=== PATIENT | female | born 1970 | race African-American/Black ===

== ENCOUNTER 2020-03-21 13:57 | Emergency (ER) | payer MEDICARE ==
[~2020-03-21] VITALS: Ht 160 cm; Wt 90.7 kg
[2020-03-21] MEDS ORDERED: KEFLEX500 MG PO (14:08)
[2020-03-21] MEDS ORDERED: BACTRIM DS TAB1 EACH PO (14:08)
--- NOTE | 2020-03-21 14:42 | Emergency Department Note ---
History of Present Illnes History of Present Illness Chief Complaint: General Medicine Complaints History of Present Illness This is a 49 year old female arrived to the ED with complaints of a bug bite over her left lateral thigh for several days. Patient admits to picking at it and has noted some discharge but denies any pain.. 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 Any updates have been documented here. Past Medical History Recent Fever: No Clinical Suspicion of Infectio: No New/Unexplained Change in Ment: No Past Medical History: Seizure Disorder Other Surgery: breast ca right breast mastectomy Social History Physically hurt or threatened: No Review of Systems Review of Systems Constitutional: Reports no symptoms EENTM: Reports no symptoms Cardiovascular: Reports no symptoms Respiratory: Reports no symptoms Gastrointestinal: Reports no symptoms Genitourinary: Reports no symptoms Musculoskeletal: Reports no symptoms Integumentary: Reports other (BUG BITE ) Neurological: Reports no symptoms Psychological: Reports no symptoms Endocrine: Reports no symptoms Hematological/Lymphatic: Reports no symptoms Review of other systems: All other systems negative Physical Exam Related Data Allergies: Coded Allergies: No Known Allergies (Unverified , 03/21/20) Triage Vital Signs Vital Signs Date Time Temp Pulse Resp B/P (MAP) Pulse Ox O2 Delivery O2 Flow Rate FiO2 03/21/20 14:02 99.0 93 18 129/81 100 Room Air Vital signs reviewed: Yes Physical Exam CONSTITUTIONAL Constitutional: Present well-developed, Present well-nourished HENT HENT: Present normocephalic, Present atraumatic, Present oropharynx clear/moist, Present nose normal HENT L/R: Present left ext ear normal, Present right ext ear normal EYES Eyes: Reports PERRL, Reports conjunctivae normal NECK Neck: Present ROM normal PULMONARY Pulmonary: Present effort normal, Present breath sounds normal CARDIOVASCULAR Cardiovascular: Present regular rhythm, Present heart sounds normal, Present capillary refill normal, Present normal rate GASTROINTESTINAL Abdominal: Present soft, Present nontender, Present bowel sounds normal GENITOURINARY Genitourinary: Present exam deferred SKIN Skin: Present other (1 cm area of drainage noted over lateral thigh with no underlying fluctuance or consolidation, no superimposed cellulitis noted, compartments otherwise soft, denies not warm to touch) MUSCULOSKELETAL Musculoskeletal: Present ROM normal NEUROLOGICAL Neurological: Present alert, Present oriented x 3, Present no gross motor or sensory deficits PSYCHOLOGICAL Psychological: Present mood/affect normal, Present judgement normal Assessment & Plan Medical Decision Making MDM 49-year-old female arrives to the ED with bug bite over lateral thigh, no superimposed cellulitis, no area of consolidation, spontaneous drainage noted, patient instructed to apply chlorhexidine as discussed and use warm compresses. Patient discharged home on antibiotics, patient is not diabetic, compartments otherwise soft and patient stable for discharge. Assessment & Plan Final Impression: (1) Abscess Depart Disposition: HOME, SELF-CARE Last Vital Signs Date Time Temp Pulse Resp B/P (MAP) Pulse Ox O2 Delivery O2 Flow Rate FiO2 03/21/20 14:02 99.0 93 18 129/81 100 Room Air REGINA BOB DO Mar 21, 2020 14:42
== END 2020-03-21 14:11 | disposition home or self-care (01) ==
LOC: ER 14:10
DX: L02.416 Cutaneous abscess of left lower limb (principal); S70.362A Insect bite (nonvenomous), left thigh, initial encounter; W57.XXXA Bitten or stung by nonvenomous insect and other nonvenomous arthropods, initial encounter; G40.909 Epilepsy, unspecified, not intractable, without status epilepticus; Z85.3 Personal history of malignant neoplasm of breast
CPT/HCPCS: 99282

== ENCOUNTER → 2022-11-12 | Outpatient (CLI) | payer MEDICARE ==
[~2022-11-12] MED LIST: BACTRIM DS TAB1 EACH PO; KEFLEX500 MG PO
== END ==
LOC: US 10:50
PROVIDERS: ATTEND Family Medicine
DX: E04.1 Nontoxic single thyroid nodule (principal)
CPT/HCPCS: 76536